=== PATIENT | female | born 1990 | race Caucasian/White ===

== ENCOUNTER → 2024-12-25 | Outpatient (CLI) | payer BC ==
[~2024-12-25] MED LIST: LIDOCAINE 1% MDV 20 ML VIAL SC SCH
[2024-12-25 09:55] VITALS: TEMP 98.3
[2024-12-25 10:45] VITALS: BP 118/64; O2SAT 99
== END ==
LOC: M IRPRO 09:17
PROVIDERS: ATTEND Otolaryngology
DX: E04.1 Nontoxic single thyroid nodule (principal)